=== PATIENT | female | born 1945 | race Caucasian/White ===

== ENCOUNTER 2018-11-08 08:45 | Outpatient (CLI) | payer MEDICARE ==
[2018-11-08] VITALS (22 sets, daily range): BP systolic 115–140; BP diastolic 57–104
== END 2018-11-08 23:59 | disposition home or self-care (01) ==
LOC: CARD DIAG 08:45
PROVIDERS: ATTEND Internal Medicine
DX: I95.1 Orthostatic hypotension (principal); R42 Dizziness and giddiness; Z87.891 Personal history of nicotine dependence
CPT/HCPCS: 93660